=== PATIENT | male | born 1960 | race Caucasian/White ===

== ENCOUNTER → 2023-09-12 | Day surgery (SDC) | payer BC ==
[2023-09-10 08:42] LABS: Absolute Lymphocytes (CBC) 1.2 K/uL (0.7-4.9); Hematocrit 46.2 % (39.6-49.0); Lymphocytes % 15.6 % (15.3-44.8); MCV 92.8 fL (80-100); MPV 8.2 fL (7.6-11.3); Platelets 174 thou/uL (152-406); RBC Red Blood Cell Count 4.98 M/uL (4.33-5.43)
[2023-09-10 08:47] LABS: Protime INR 1.1
--- NOTE | 2023-09-10 08:49 | RAD REPORT ---
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 Hypertension COMPARISON: No comparisons TECHNIQUE: PA and lateral views of the chest were obtained. FINDINGS: The lungs are clear. Heart size is normal and central vasculature is within normal limits. No pleural effusion or pneumothorax seen. No acute bony finding noted. IMPRESSION: No acute cardiopulmonary process.
[2023-09-10 08:55] LABS: Potassium 4.3 mEq/L (3.5-5.1)
[~2023-09-12] MED LIST: ASPIRIN 325 MG TAB ONE; ATROPINE SULF 1 MG/10 ML SYR IV ONE; CLOPIDOGREL 75 MG TABLET ONE; DIPHENHYDRAMINE 50 MG/ML VIAL ONE; FENTANYL CITR 100 MCG/2 ML ONE; HEPA 1000U/500MLS 2,000 UNIT/1,000 ML BAG IV ONE; HEPARIN 10,000 UNIT/10 ML VIAL IV ONE; HEPARIN 5000 UNIT/ML 1 ML VIAL ONE; LIDOCAINE 1% 20 ML MDV ONE; METHYLPREDNISOLONE 125 MG INJ ONE; MIDAZOLAM HCL 2 MG/2 ML INJ ONE; NA CHLORIDE 0.9% 500 ML ONE; NITROGLYCERIN/D5W 25 MG/250 ML BTL IV ONE; TICAGRELOR 90 MG TABLET PO ONE; VERAPAMIL HCL 10 MG/4 ML VIAL IV ONE
[2023-09-12 15:51] VITALS: TEMP 97.9
[2023-09-12 16:39] VITALS: BP 116/83; O2SAT 94
--- NOTE | 2023-09-12 21:04 | OP ---
Date of Procedure: 09/12/2023 Surgeon: KARELY AYALA Procedures Performed: 1.Selective coronary angiogram. 2.Left heart catheterization. Indication: Unstable angina. Access: Right radial artery, 6-[place]er, closed with TR band. Complications: None. Bleeding: Less than 50 mL. Total Sedation Time: 50 minutes. Description Of Procedure: After risks, benefits, alternatives were explained, the patient agreed to procedure and signed informed consent. The patient was [facility] to [facility], prepped and draped in usual sterile fashion. Then, I accessed right radial artery using pediat antonino micropuncture kit, placed a 6-[place] Slender sheath and took 5-[place] Austin 4 catheter into aorti c root, engaged left main and RCA, took standard views and then exchanged for 6-[place] JL3.5 catheter , engaged the left main, took better views of the left system and the catheter was pushed over the wi re into the LV, measured the LVEDP. Pullback did not record any gradient. Then, removed the cathete r and the sheath, placed TR band with good hemostasis. Findings: 1.Left main: Left main, large and normal. 2.LAD: Proximal ostia 70%, and then in the mid segment diffuse 80%, and then right after diagonal t akeoff the LAD severely stenosed at 95% to 99%, less than ARYAN-3 flow. The rest of the LAD is normal . 3.Left circumflex: Large. The OM branch is ostially and proximally 90% stenosed and is a very larg e branch. 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 5.LVEDP borderline elevated at 30 mmHg. Conclusion: 1.Severe multivessel coronary artery disease. 2.Elevated LVEDP. Plan: Transfer for emergent CABG. SR/MODL Voice ID: [id number] Report ID: [id number]
== END ==
LOC: CCL 12:00
PROVIDERS: ATTEND Internal Medicine
DX: I25.110 Atherosclerotic heart disease of native coronary artery with unstable angina pectoris (principal); I25.82 Chronic total occlusion of coronary artery; I35.1 Nonrheumatic aortic (valve) insufficiency; I51.7 Cardiomegaly; I10 Essential (primary) hypertension; E78.2 Mixed hyperlipidemia; Z79.899 Other long term (current) drug therapy; Z88.8 Allergy status to other drugs, medicaments and biological substances
CPT/HCPCS: 85025; 80048; 36415; 83721; 85610; 85730; 71046; 93458; 76937; C1893; Q9966; J1644; J2001; J1200; J2930; J7040; 99152; 99153; J0461; J2250; J3010